=== PATIENT | male | born 1990 | race African-American/Black ===

== ENCOUNTER 2024-10-03 16:18 | Emergency (ER) | payer OTHER ==
[~2024-10-03] VITALS: Ht 188 cm; Wt 110.0 kg
[2024-10-03 16:20] VITALS: O2SAT 98
[2024-10-03] MEDS ORDERED: IBUPROFEN 400MG TABLET PO ONE (21:15)
[2024-10-03] MEDS ORDERED: LIDO700A15 TP (21:27)
[2024-10-03] MEDS ORDERED: NAPR-1176 MT (21:27)
[2024-10-03 22:13] VITALS: BP 178/100; PULSE 99; RESP 18; TEMP 36.7; O2SAT 100
== END 2024-10-03 22:16 | disposition home or self-care (01) ==
LOC: ER 16:18
DX: M25.562 Pain in left knee (principal); E11.9 Type 2 diabetes mellitus without complications; Z79.1 Long term (current) use of non-steroidal anti-inflammatories (NSAID); Z79.899 Other long term (current) drug therapy
CPT/HCPCS: 73562; 99283

== ENCOUNTER 2024-10-03 23:05 | Emergency (ER) | payer OTHER ==
[~2024-10-03 23:05] MED LIST: LIDO700A15 TP; NAPR-1176 MT
[2024-10-03 23:28] VITALS: PULSE 108; O2SAT 100
== END 2024-10-04 02:47 | disposition home or self-care (01) ==
LOC: EDUNIT# 23:05 → ER 23:05
DX: R00.0 Tachycardia, unspecified (principal); Z00.01 Encounter for general adult medical examination with abnormal findings; R73.9 Hyperglycemia, unspecified; Z79.1 Long term (current) use of non-steroidal anti-inflammatories (NSAID); Z59.00 Homelessness unspecified; Z88.5 Allergy status to narcotic agent
CPT/HCPCS: 99281

== ENCOUNTER 2024-10-04 02:40 | Emergency (ER) | payer OTHER ==
[~2024-10-04] VITALS: Ht 182.9 cm; Wt 78.0 kg
[2024-10-04 02:47] VITALS: TEMP 37; O2SAT 100
[2024-10-04 05:01] VITALS: BP 182/118; PULSE 101; RESP 16; O2SAT 100
== END 2024-10-04 05:03 | disposition home or self-care (01) ==
LOC: ER 02:40
DX: Z00.00 Encounter for general adult medical examination without abnormal findings (principal); E11.9 Type 2 diabetes mellitus without complications; I10 Essential (primary) hypertension; Z79.899 Other long term (current) drug therapy; Z79.1 Long term (current) use of non-steroidal anti-inflammatories (NSAID); Z88.5 Allergy status to narcotic agent
CPT/HCPCS: 99283

== ENCOUNTER 2024-10-04 15:40 | Emergency (ER) | payer OTHER ==
[~2024-10-04] VITALS: Ht 190.5 cm; Wt 90.0 kg
[2024-10-04 15:42] VITALS: O2SAT 98
[2024-10-04 21:13] VITALS: BP 158/98; PULSE 80; RESP 20; TEMP 36.8; O2SAT 100
== END 2024-10-04 21:15 | disposition home or self-care (01) ==
LOC: ER 15:40
DX: Z00.00 Encounter for general adult medical examination without abnormal findings (principal); E11.9 Type 2 diabetes mellitus without complications; E78.00 Pure hypercholesterolemia, unspecified; I10 Essential (primary) hypertension; Z59.00 Homelessness unspecified; Z79.1 Long term (current) use of non-steroidal anti-inflammatories (NSAID); Z88.5 Allergy status to narcotic agent
CPT/HCPCS: 99283

== ENCOUNTER 2024-10-06 23:18 | Inpatient (IN) | payer OTHER ==
[~2024-10-06] VITALS: Ht 190.5 cm; Wt 94.8 kg
[2024-10-07 00:55] LABS: CLARITY URINE CLEAR (CLEAR); COLOR URINE YELLOW (YELLOW); GLUCOSE URINE 3+ (NEGATIVE); KETONES URINE NEGATIVE (NEGATIVE); LEUKOCYTE ESTERASE URINE NEGATIVE (NEGATIVE); NITRITE URINE NEGATIVE (NEGATIVE); OCCULT BLOOD URINE 1+ (NEGATIVE); PROTEIN URINE 3+ (NEGATIVE); SPECIFIC GRAVITY URINE 1.018 (1.005-1.030); UROBILINOGEN URINE 0.2 E.U./dL (0.2-1.0)
[2024-10-07 01:47] LABS: SQUAMOUS EPITHELIAL CELL URINE 2+ /lpf (RARE/1+)
[2024-10-07 01:48] LABS: BACTERIA URINE TRACE; FINE GRANULAR CASTS URINE 0-5 /lpf; WBC URINE 0-2 /hpf (0-2)
[2024-10-07 02:00] LABS: BASOPHILS % 0.4 % (0.0-2.0); DIFFERENTIAL COMMENT 0; EOSINOPHILS % 1.4 % (0.0-5.0); HEMATOCRIT. 31.1 % (42.0-52.0); HEMOGLOBIN. 10.3 g/dL (14.0-18.0); LYMPHOCYTES % 19.6 % (20.0-50.0); MEAN CORPUSCULAR HGB CONC 33.1 g/dL (31.0-37.0); MEAN CORPUSCULAR VOLUME 78.6 fL (80.0-94.0); MEAN PLATELET VOLUME 8.8 fl (7.4-10.4); MONOCYTES % 4.5 % (2.0-8.0); NEUTROPHILS % 74.1 % (40.0-76.0); PLATELET 222 x1000/uL (130-400); RED BLOOD CELL COUNT 3.95 mill/uL (4.7-6.1); RED CELL DISTRIBUTION WIDTH 14.4 % (11.6-14.6); WHITE BLOOD COUNT 5.7 x1000/uL (4.5-11.0)
[2024-10-07 02:04] LABS: POTASSIUM 4.4 mEq/L (3.5-5.1)
[2024-10-07 02:05] LABS: CALCIUM 8.9 mg/dL (8.7-10.4)
[2024-10-07 02:10] LABS: CREATININE 1.9 mg/dL (0.6-1.3)
[2024-10-07] MEDS ORDERED: VANCOMYCIN 1000MG/250ML 250 ML IV SCH (02:30)
[2024-10-07] MEDS: VANCOMYCIN 1G PREMIX 200 ML IV NR (03:35)
[2024-10-07] MEDS: KETOROLAC 15MG/ML VIAL IM ONE (03:35)
[2024-10-07 04:00] VITALS: BP 158/95; PULSE 94; RESP 18; TEMP 36.9; O2SAT 99
[2024-10-07] MEDS: HYDRALAZINE 20MG/ML VIAL IV PRN (04:10)
[2024-10-07] MEDS ORDERED: HYDROCODONE/ACETAMINOPHEN 5/325MG TABLET PO PRN (05:00)
[2024-10-07] MEDS ORDERED: DEXTROSE 50% WATER 50ML SYRINGE IV PRN (05:00)
[2024-10-07] MEDS ORDERED: ACETAMINOPHEN 325MG TABLET PO PRN (05:00)
[2024-10-07] MEDS ORDERED: LISI10TA26 MT (05:10)
[2024-10-07] MEDS ORDERED: INSLIS SUBCUT (05:10)
[2024-10-07 05:24] VITALS: BP 154/95; PULSE 94; RESP 18; TEMP 37
[2024-10-07] MEDS: PIPERACILLIN/TAZO 3.375G/50ML 50 ML IV SCH (06:15)
[2024-10-07] MEDS: BLOOD SUGAR DIAGNOSTIC STRIP TEST SCH (06:16)
[2024-10-07] MEDS: INSULIN LISPRO 100 UNITS/ML SUBCUT SCH (07:30)
[2024-10-07 08:00] VITALS: BP 156/95; PULSE 102; RESP 19; TEMP 36.7; O2SAT 99
[2024-10-07] MEDS: LOSARTAN 50 MG TABLET PO SCH ×2 (09:16→21:39)
[2024-10-07] MEDS: AMLODIPINE 10MG TABLET PO SCH (09:16)
[2024-10-07] MEDS: INSULIN GLARGINE 100 UNITS/ML SUBCUT SCH (10:18)
[2024-10-07] MEDS: VANCOMYCIN 1GM/200ML PMX (BAXTER) IV NR (10:27)
[2024-10-07 12:00] VITALS: BP 168/101; PULSE 94; RESP 20; TEMP 36.6; O2SAT 92
[2024-10-07] MEDS: CLONIDINE 0.1MG TABLET PO PRN (13:14)
[2024-10-07 16:00] VITALS: BP 167/93; PULSE 97; RESP 20; TEMP 36.3; O2SAT 99
[2024-10-07 20:00] VITALS: BP 171/92; PULSE 94; RESP 20; TEMP 36.6; O2SAT 95
[2024-10-08] VITALS: BP 150/95; PULSE 96; RESP 20; TEMP 36.2; O2SAT 96
[2024-10-08 04:00] VITALS: BP 171/95; PULSE 95; RESP 20; TEMP 36.3; O2SAT 94
[2024-10-08 07:46] LABS: *AMPHETAMINES SCREEN URINE NEGATIVE (NEGATIVE)
[2024-10-08 07:48] LABS: *BARBITURATES SCREEN URINE NEGATIVE (NEGATIVE); *BENZODIAZEPINES SCREEN URINE NEGATIVE (NEGATIVE); *COCAINE SCREEN URINE NEGATIVE (NEGATIVE); CANNABINOID URINE SCREEN NEGATIVE (NEGATIVE); ECSTASY MDMA SCREEN URINE NEGATIVE (NEGATIVE); METHADONE URINE SCREEN NEGATIVE (NEGATIVE); OPIATES URINE SCREEN NEGATIVE (NEGATIVE); PHENCYCLIDINE URINE SCREEN NEGATIVE (NEGATIVE)
[2024-10-08 08:00] VITALS: BP 150/99; PULSE 96; RESP 19; TEMP 36.9; O2SAT 99
[2024-10-08] MEDS ORDERED: AMLO10TA80 PO (10:39)
[2024-10-08] MEDS ORDERED: LANTUSUD SUBCUT (10:39)
[2024-10-08] MEDS ORDERED: LOSA50TA41 PO (10:39)
[2024-10-08 11:31] LABS: POTASSIUM 4.5 mEq/L (3.5-5.1)
[2024-10-08 11:32] LABS: CALCIUM 9.1 mg/dL (8.7-10.4)
[2024-10-08 11:37] LABS: CREATININE 1.9 mg/dL (0.6-1.3)
[2024-10-08 12:00] VITALS: BP 156/102; PULSE 102; RESP 20; TEMP 38; O2SAT 100
[2024-10-08] MEDS ORDERED: INSU100V43 SQ (15:54)
[2024-10-08 16:00] VITALS: BP 147/99; PULSE 101; RESP 20; TEMP 37; O2SAT 99
[2024-10-08 20:00] VITALS: BP 146/95; PULSE 98; RESP 18; TEMP 35.8; O2SAT 96
[2024-10-08] MEDS: ONDANSETRON HCL 4MG/2ML INJ IV PRN (21:52)
[2024-10-09] VITALS: BP 146/89; PULSE 105; RESP 18; TEMP 37.2; O2SAT 95
[2024-10-09 04:00] VITALS: BP 147/91; PULSE 101; RESP 19; TEMP 37.1; O2SAT 96
[2024-10-09 08:00] VITALS: BP 175/114; PULSE 113; RESP 20; TEMP 36.3; O2SAT 97
[2024-10-09 12:00] VITALS: BP 151/92; PULSE 112; RESP 20; TEMP 36.3; O2SAT 98
[2024-10-09 15:20] VITALS: BP 146/89; PULSE 105; TEMP 95.9; O2SAT 95
== END 2024-10-09 16:30 | disposition home or self-care (01) | DRG 639 ==
LOC: ER 23:20 → 8EST 10-07 02:17 → EDBEDREQ 10-07 02:22 → EDBEDREQTM 10-07 02:22
PROVIDERS: ADMIT Internal Medicine; ATTEND Internal Medicine
PROC: 0Y9N3ZZ Drainage of Left Foot, Percutaneous Approach (ICD-10-PCS; principal; 2024-10-07)
DX: E11.621 Type 2 diabetes mellitus with foot ulcer (principal); E11.40 Type 2 diabetes mellitus with diabetic neuropathy, unspecified; N17.0 Acute kidney failure with tubular necrosis; E11.65 Type 2 diabetes mellitus with hyperglycemia; E66.9 Obesity, unspecified; E78.00 Pure hypercholesterolemia, unspecified; R26.9 Unspecified abnormalities of gait and mobility; S90.425A Blister (nonthermal), left lesser toe(s), initial encounter; L97.529 Non-pressure chronic ulcer of other part of left foot with unspecified severity; X58.XXXA Exposure to other specified factors, initial encounter; F20.9 Schizophrenia, unspecified; I10 Essential (primary) hypertension; Z88.5 Allergy status to narcotic agent; Y93.89 Activity, other specified; Y92.89 Other specified places as the place of occurrence of the external cause; Y99.8 Other external cause status; Z68.26 Body mass index [BMI] 26.0-26.9, adult
CPT/HCPCS: 36415; 73620; 80048; 80202; 80305; 81003; 82962; 83036; 85025; 99285; A4663; J0360; J1815; J1885; J2405; J2543; J3370

== ENCOUNTER 2025-04-17 19:46 | Emergency (ER) | payer MEDICAID, OTHER ==
[~2025-04-17] VITALS: Ht 193 cm; Wt 113.0 kg
[~2025-04-17 19:46] MED LIST changes: +AMLO10TA80 PO; +INSLIS SUBCUT; +INSU100V43 SQ; +LANTUSUD SUBCUT; +LIDO-53 TP; -LIDO700A15 TP; +LOSA50TA41 PO
[2025-04-17 19:47] VITALS: TEMP 36.6; O2SAT 100
[2025-04-17 20:39] LABS: BASOPHILS % 0.4 % (0.0-2.0); EOSINOPHILS % 1.1 % (0.0-5.0); HEMATOCRIT. 25.8 % (42.0-52.0); HEMOGLOBIN. 8.3 g/dL (14.0-18.0); LYMPHOCYTES % 13.8 % (20.0-50.0); MEAN PLATELET VOLUME 7.7 fl (7.4-10.4); MONOCYTES % 4.0 % (2.0-8.0); NEUTROPHILS % 80.7 % (40.0-76.0); PLATELET 199 x1000/uL (130-400); RED BLOOD CELL COUNT 3.40 mill/uL (4.7-6.1); RED CELL DISTRIBUTION WIDTH 17.1 % (11.6-14.6)
[2025-04-17] MEDS: SODIUM CHLORIDE 0.9% 1,000 ML IV ONE (20:51)
[2025-04-17 20:58] LABS: UREA NITROGEN BLOOD 40 mg/dL (9-23)
[2025-04-17 20:59] LABS: ASPARTATE AMINOTRANSFERASE 17 IU/L (<34)
[2025-04-17 21:00] LABS: BILIRUBIN DIRECT 0.1 mg/dL (<=3.0); BILIRUBIN TOTAL 0.5 mg/dL (0.1-1.0); PROTEIN TOTAL 7.5 g/dL (6.0-8.3)
[2025-04-17 21:01] LABS: INR 1.1
[2025-04-17] MEDS: KETOROLAC 15MG/ML VIAL IV ONE (21:12)
[2025-04-17 21:20] LABS: CREATININE 3.0 mg/dL (0.6-1.3)
[2025-04-17] MEDS ORDERED: SODIUM CHLORIDE 0.9% 1,000 ML IV ONE (22:15)
[2025-04-17] MEDS ORDERED: DIPHENHYDRAMINE 50MG/ML VIAL IV PRN (23:45)
[2025-04-17] MEDS ORDERED: ONDANSETRON HCL 4MG/2ML INJ IV PRN (23:45)
[2025-04-17] MEDS ORDERED: ACETAMINOPHEN 325MG TABLET PO PRN ×2 (23:45)
[2025-04-17] MEDS ORDERED: MAGNESIUM/ALUMINUM HYDROXIDE/SIMETHICONE 30ML UDC PO PRN (23:45)
[2025-04-17] MEDS ORDERED: ZOLPIDEM TARTRATE 5MG TABLET PO PRN (23:45)
[2025-04-17] MEDS ORDERED: SODIUM CHLORIDE 0.9% 1,000 ML IV SCH (23:45)
[2025-04-17] MEDS ORDERED: CLONIDINE 0.1MG TABLET PO PRN (23:45)
[2025-04-17] MEDS ORDERED: DEXTROSE 50% WATER 50ML SYRINGE IV PRN (23:45)
[2025-04-17] MEDS ORDERED: VALPROIC ACID 250MG CAPSULE PO SCH (23:45)
[2025-04-18 00:05] VITALS: BP 138/92; PULSE 68; RESP 18; O2SAT 100
[2025-04-18] MEDS ORDERED: SODIUM CHLORIDE 0.9% 3ML FLUSH IVF SCH (06:00)
[2025-04-18] MEDS ORDERED: INSULIN LISPRO 100 UNITS/ML SUBCUT SCH (08:20)
[2025-04-18] MEDS ORDERED: ENOXAPARIN 30MG/0.3ML SYR SUBCUT SCH (09:00)
[2025-04-18] MEDS ORDERED: LABETALOL HCL 100MG TABLET PO SCH (09:00)
[2025-04-18] MEDS ORDERED: AMLODIPINE 10MG TABLET PO SCH (09:00)
[2025-04-18] MEDS ORDERED: SERTRALINE HCL 100MG TABLET PO SCH (09:00)
[2025-04-18] MEDS ORDERED: BLOOD SUGAR DIAGNOSTIC STRIP TEST SCH (09:00)
[2025-04-18] MEDS ORDERED: DULOXETINE HCL 30MG DR CAPSULE PO SCH (09:00)
[2025-04-18] MEDS ORDERED: OLANZAPINE 10MG TABLET PO SCH (21:00)
== END 2025-04-18 00:28 | disposition short-term general hospital (02) ==
LOC: ER 19:46 → CMPBEDREQ 04-19 07:16
DX: M62.82 Rhabdomyolysis (principal); N17.9 Acute kidney failure, unspecified; E11.9 Type 2 diabetes mellitus without complications; E78.00 Pure hypercholesterolemia, unspecified; I10 Essential (primary) hypertension; Z88.5 Allergy status to narcotic agent; Z79.899 Other long term (current) drug therapy
CPT/HCPCS: 80076; 80048; 80320; 82550; 83605; 85025; 85610; 85651; 85730; 36415; 96361; 96374; 99285; J1885; J7030; G0480